=== PATIENT | female | born 2000 | race Caucasian/White ===

== ENCOUNTER 2022-06-10 14:07 | Emergency (ER) | payer MEDICAID, SELFPAY ==
[2022-06-10 15:52] VITALS: BP 149/83; PULSE 96; RESP 16; O2SAT 100; BMI 37.8
--- NOTE | 2022-06-10 16:56 | ED.ALLEREA ---
HPI - Allergic Reaction General Chief complaint: Allergic Reaction Stated complaint: allergic reaction, sweats Time Seen by Provider: 06/10/22 16:48 Source: patient Mode of arrival: ambulatory Limitations: no limitations History of Present Illness HPI narrative: Patient comes to the emergency room complaining of an allergic reaction, possibly to amoxicillin. Patient states that she has been taking amoxicillin for the last 10 days for bronchitis. Patient is on her last day, it earlier this morning patient noticed hives on her thighs arms, patient states that she is very itchy head to toe. Denies any difficulty breathing. No chest pain shortness of breath. Patient states that she is not aware of having any other allergies. Related Data Previous Rx's Medication Instructions Recorded prednisone 50 mg tablet 50 mg PO DAILY #4 tabs 06/10/22 Allergies Allergy/AdvReac Type Severity Reaction Status Date / Time amoxicillin Allergy Hives Verified 06/10/22 15:55 Review of Systems Review of Systems: Constitutional : No Weight loss, No Fever, No Chills, No Night Sweats, No Fatigue, No Malaise ENT/Mouth : No Hearing loss, No Ear Pain, No Nasal Congestion, No Sinus Pain, No Hoarseness, No sore throat, No Rhinorrhea, No Swallowing Difficulty Eyes: No Eye Pain, No Swelling, No Redness, No Foreign Body, No Discharge, No Vision Changes Cardiovascular : No Chest Pain, No SOB, No Dyspnea on Exertion, No Orthopnea, No Edema, No Palpitations Respiratory : No Cough, No Sputum, No Wheezing, No Smoke Exposure, No Dyspnea Gastrointestinal : No Nausea, No Vomiting, No Diarrhea, No Constipation, No abdominal Pain, No Hematochezia, No Melena Genitourinary : no irregular bleeding, No Dysuria, No Urinary Frequency, No Hematuria, No Urinary Incontinence, No Urgency, No Flank Pain, No Urinary Flow Changes, No Hesitancy Musculoskeletal : No joint pain, No Myalgias, No Joint Swelling Skin : Hives head to toe Neuro : No Weakness, No Numbness, No Paresthesias, No Loss of Consciousness, No Dizziness, No Headache Psych : No Anxiety/Panic, No Depression, No SI/HI/AH/VH, No Social Issues, Heme/Lymph: No Bruising, No Bleeding,No Lymphadenopathy Endocrine : No Polyuria, No Polydipsia, No Temperature Intolerance PMFSH Social History Social History Advance Directives: No Advance Directives Information Provided: No Physical Exam ED Vital Signs: Vital Signs - 24 hr 06/10/22 15:52 Pulse Rate 96 Respiratory Rate 16 Blood Pressure 149/83 H Pulse Oximetry 100 Oxygen Delivery Method Room Air BMI result Body Mass Index 37.8 Const Other: Appearance: Alert. Oriented X3. No acute distress. Eyes: Pupils equal, round and reactive to light. ENT: Pharynx normal. Neck: Normal inspection. Neck supple. No lymph nodes noted. No crepitus CVS: Normal heart rate and rhythm. Pulses normal. Normal S1 and S2 Respiratory: No respiratory distress. Breath sounds normal. No Wheezing. No rales Abdomen: Soft and nontender. No rigidity. No distention. Skin: Skin warm and dry. Hives in upper extremities, lower extremities, much worse on the thighs. Erythema in the palms of the hands, patient scratching continuously Extremities: No lower extremity edema. No Lacerations. No Rash Neuro: Oriented X 3. No motor deficit. No sensory deficit. Moving all extremities. No slurred speech. CN 2 through 12 grossly intact Psych: calm, cooperative, normal affect Course Course Course Narrative: It is unlikely that the patient may have an allergic reaction to amoxicillin, patient has been taking it almost 10 days now. Patient will receive IV fluids, Benadryl, Pepcid, Solu-Medrol. Patient states that she took 25 mg approximately 6 hours ago without any relief. Medications Administered Discontinued Medications Generic Name Dose Route Start Last Admin Trade Name Freq PRN Reason Stop Dose Admin Diphenhydramine HCl 50 mg 06/10/22 16:52 06/10/22 17:17 Diphenhydramine Hcl 50 Mg/Ml Vial IVPUSH 06/10/22 16:53 50 mg ONCE ONE Administration Famotidine 20 mg 06/10/22 16:52 06/10/22 17:18 Famotidine/Pf 20 Mg/2 Ml Vial IVPUSH 06/10/22 16:53 20 mg ONCE ONE Administration Sodium Chloride 1,000 mls @ 999 mls/hr 06/10/22 16:52 06/10/22 17:16 Ns IVCONT 06/10/22 17:52 999 mls/hr .Q1H1M ONE Administration Methylprednisolone Sodium Succinate 125 mg 06/10/22 16:52 06/10/22 17:19 Methylprednisolone Sod Succ 125 Mg/2 Ml Vial IVPUSH 06/10/22 16:53 125 mg ONCE ONE Administration Medical Decision Making Medical Decision Making [facility] Narrative: After IV fluids, Benadryl, Pepcid, Solu-Medrol, patient has hives improved quite a bit. Patient no longer itching. The hives are still present but patient is otherwise asymptomatic. I discussed with the patient that we can give her 1 more round of the cocktail for allergic reaction, patient declined, patient would like to go home. Patient will be going home with a prescription for prednisone. Differential Diagnosis Differential Diagnoses: The differential diagnosis associated with the presentation includes (Allergic reaction, hives, insect bites) Prescription Management Pain consider given the patient prescription for EpiPen. However, patient did not have any severe symptoms. Patient instructed to discontinue taking amoxicillin. Patient finished the entire course as it is, no further antibiotics needed. Discharge Plan Discharge Clinical Impression: Allergic reaction Patient Disposition: Home, Self-Care Instructions: General Allergic Reaction (ED) Additional Instructions: Please follow-up with your primary care physician tomorrow. If you have any worsening or new symptoms, please return to the emergency room or call 911 Prescriptions: New prednisone 50 mg tablet 50 mg PO DAILY Qty: 4 0RF
[2022-06-10] MEDS: 0.9 % Sodium Chloride 1,000 ML 999 ML IVCONT (17:16)
[2022-06-10] MEDS: diphenhydrAMINE HCL 50 MG/ML VIAL IVPUSH (17:17)
[2022-06-10] MEDS: Famotidine/PF 20 MG/2 ML VIAL IVPUSH (17:18)
[2022-06-10] MEDS: methylPREDNISolone Sod Succ 125 MG/2 ML VIAL IVPUSH (17:19)
--- NOTE | 2022-06-10 17:23 | PC.NURSE ---
pt a&ox3, vss, 20G IV placed left AC, medicated per provider order, ivf running. no new orders at this time.
== END 2022-06-10 20:35 | disposition home or self-care (01) ==
PROVIDERS: Emergency Provider Emergency Medicine
DX: L50.0 Allergic urticaria (principal); Z79.899 Other long term (current) drug therapy
CPT/HCPCS: 96374; 96375; 99284; J1200; J2930